=== PATIENT | female | born 1995 | race Caucasian/White ===

== ENCOUNTER 2022-06-06 16:28 | Emergency (ER) | payer MEDICAID, SELFPAY ==
[2022-06-06 16:28] VITALS: BP 118/81; PULSE 94; RESP 16; TEMP 36; O2SAT 99; BMI 21.7
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
[2022-06-06] MEDS: Ondansetron ODT 4 MG Tablet 8 MG PO (16:51)
[2022-06-06] MEDS: Ketorolac 30 MG/ML Syringe IM (16:52)
== END 2022-06-06 17:05 | disposition home or self-care (01) ==
PROVIDERS: Emergency Provider Emergency Medicine; Visit Provider Emergency Medicine
DX: S16.1XXA Strain of muscle, fascia and tendon at neck level, initial encounter (principal); S39.012A Strain of muscle, fascia and tendon of lower back, initial encounter; V44.5XXA Car driver injured in collision with heavy transport vehicle or bus in traffic accident, initial encounter
CPT/HCPCS: 96372; 99282